=== PATIENT | female | born 1990 | race American Indian/Alaskan Native ===

== ENCOUNTER 2017-02-18 19:47 | Emergency (ER) | payer MEDICAID ==
[2017-02-18 21:51] LABS: Basophils % (Auto) 0.5 % (0.0-1.8); Eosinophils % (Auto) 0.9 % (0.0-4.3); Hemoglobin 13.9 gm/dl (10.1-14.3); Mean Corpuscular HGB Conc 32 % (30-34); Mean Corpuscular Hemoglobin 28 pg (28-32); Mean Corpuscular Volume 88 fl (79-97); Platelet Count 219 K/mm3 (140-440); Red Blood Count 4.91 M/mm3 (3.65-5.03); Red Cell Distribution Width 15.1 % (13.2-15.2); White Blood Count 6.5 K/mm3 (4.5-11.0)
[2017-02-18 22:01] LABS: INR 1.01 (0.87-1.13)
[2017-02-18 22:02] LABS: Partial Thromboplastin Time 33.9 Sec. (24.2-36.6)
[2017-02-18 22:33] LABS: Anion Gap 17 mmol/L; BUN/Creatinine Ratio 13; Blood Urea Nitrogen 9 mg/dL (7-17); Carbon Dioxide 28 mmol/L (22-30); Chloride 103.4 mmol/L (98-107); Glucose 88 mg/dL (65-100); Potassium 4.9 mmol/L (3.6-5.0); Sodium 143 mmol/L (137-145)
[2017-02-19 01:44] VITALS: BP 145/94
--- NOTE | 2017-02-19 02:07 | Emergency Department Report ---
ED Female HPI - General Chief complaint: Vaginal Bleeding Stated complaint: HIGH BLOOD PRESSURE,VAGINAL BLEEDING Time Seen by Provider: 02/19/17 01:40 Source: patient Mode of arrival: Ambulatory Limitations: No Limitations - History of Present Illness Initial comments: T6-year-old more per obese female presents to the emergency room irregular menses with no active bleeding during triage. She denies any abdominal pain or pelvic pain. She does report to me that her period has just started again while waiting to be evaluated by a provider. She reports that her period come on for 2 days and off for 3 days and then come back on. 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 She reports that she is followed by [facility]. Her last Coumadin check was last month. She does not know what the levels were. Patient also concern for elevated blood pressure. She reports she has a history of hypertension is on hydrochlorothiazide 25 mg daily. Her blood pressure during triage is 157/103 repeat of her blood pressure was 145/94 with a heart rate of 100% room air oxygen. Complaint: vaginal bleeding -: month(s) Severity: moderate Severity scale (0 -10): 0 Consistency: intermittent Worsens with: none Associated Symptoms: vaginal bleeding - Related Data Sexually active: No Home Medications Medication Instructions Recorded Confirmed Last Taken HCTZ 25 mg PO DAILY 02/18/17 02/18/17 Unknown Previous Rx's Medication Instructions Recorded Last Taken Type Warfarin Sodium 7.5 mg PO DAILY #30 02/19/17 Unknown Rx Allergies Allergy/AdvReac Type Severity Reaction Status Date / Time acetaminophen [From Vicodin] Allergy Unknown Verified 02/02/16 18:08 hydrocodone bitartrate Allergy Unknown Verified 02/02/16 18:08 [From Vicodin] Penicillins Allergy Shortness Verified 02/02/16 18:08 of Breath ED Review of Systems ROS: Stated complaint: HIGH BLOOD PRESSURE,VAGINAL BLEEDING Other details as noted in HPI Constitutional: denies: chills, fever Eyes: denies: eye pain, eye discharge, vision change ENT: denies: ear pain, throat pain Respiratory: denies: cough, shortness of breath, wheezing Cardiovascular: denies: chest pain, palpitations Endocrine: no symptoms reported Gastrointestinal: denies: abdominal pain, nausea, diarrhea Genitourinary: abnormal menses Musculoskeletal: denies: back pain, joint swelling, arthralgia Skin: denies: rash, lesions Neurological: denies: headache, weakness, paresthesias Hematological/Lymphatic: other (on Coumadin [place] 0.5 mg daily) ED Past Medical Hx - Past Medical History Hx Hypertension: Yes Hx Deep Vein Thrombosis: Yes Hx Pulmonary Embolism: Yes Hx Asthma: Yes Additional medical history: "Blood disorder", MORBID OBESITY, - Surgical History Additional Surgical History: - Social History Smoking Status: Never Smoker Substance Use Type: None - Medications Home Medications: Home Medications Medication Instructions Recorded Confirmed Last Taken Type HCTZ 25 mg PO DAILY 02/18/17 02/18/17 Unknown History Warfarin Sodium 7.5 mg PO DAILY #30 02/19/17 Unknown Rx ED Physical Exam - General Limitations: No Limitations - Head Head exam: Present: atraumatic - Eye Eye exam: Present: normal appearance - ENT ENT exam: Present: mucous membranes moist - Neck Neck exam: Present: normal inspection - Respiratory Respiratory exam: Present: normal lung sounds bilaterally. Absent: respiratory distress - Cardiovascular Cardiovascular Exam: Present: regular rate, normal rhythm. Absent: systolic murmur, diastolic murmur, rubs, gallop - GI/Abdominal GI/Abdominal exam: Present: soft, normal bowel sounds - External exam: Present: normal external exam, bleeding Speculum exam: Present: vaginal bleeding Bi-manual exam: Present: normal bi-manual exam - Extremities Exam Extremities exam: Present: normal inspection - Neurological Exam Neurological exam: Present: oriented X3 - Psychiatric Psychiatric exam: Present: normal affect, normal mood - Skin Skin exam: Present: warm, dry, intact, normal color. Absent: rash ED Course Vital Signs 02/18/17 02/19/17 21:14 01:43 Temperature 98 F Pulse Rate 75 84 Respiratory 18 18 Rate Blood Pressure 157/103 Blood Pressure 145/94 [Right] O2 Sat by Pulse 98 100 Oximetry ED Medical Decision Making - Lab Data Result diagrams: 02/18/17 21:28 02/18/17 21:28 - Medical Decision Making Patient has been evaluated by this provider in fast track. I discussed the patient that she will need to follow-up with a [employer]ATIONAL SALES provider and her primary care provider for treatment for dysfunctional uterine bleeding. Patient verbalized understanding. I did discuss the patient will refill her Coumadin at 7.5 mg and encouraged her to have her Coumadin level check she reports that she's been out of it for the last 2 days. Patient verbalized understanding Critical care attestation.: If time is entered above; I have spent that time in minutes in the direct care of this critically ill patient, excluding procedure time. ED Disposition Clinical Impression: Dysfunctional uterine bleeding, Anticoagulant disorder Disposition: TO HOME OR SELFCARE Is pt being admited?: No Does the pt Need Aspirin: No Condition: Stable Instructions: Dysfunctional Uterine Bleeding (ED), Warfarin (By mouth) Additional Instructions: Please take Coumadin as prescribed. Please follow with her NATIONAL SALES doctor as well as [facility]. Prescriptions: Warfarin Sodium 7.5 mg PO DAILY #30 Referrals: [facility] [Outside] - 3-5 Days SHEBA GREENWOOD DO [Staff Physician] - 3-5 Days Forms: Work/School Release Form(ED)
[2017-02-19 02:13] LABS: Bacteria,Urine 2+ /HPF (Negative); Bilirubin,Urine NEG (Negative); Blood,Urine LG (Negative); Ketones,Urine NEG (Negative); Leukocyte Esterase,Urine SM (Negative); Mucus,Urine 3+ /HPF; Nitrite,Urine NEG (Negative)
[2017-02-19 02:15] LABS: RBC,Urine > 182.0 /HPF (0.0-6.0)
== END 2017-02-19 02:42 | disposition home or self-care (01) ==
LOC: ED 19:47
DX: N93.8 Other specified abnormal uterine and vaginal bleeding (principal); D75.89 Other specified diseases of blood and blood-forming organs; I10 Essential (primary) hypertension; J45.909 Unspecified asthma, uncomplicated
CPT/HCPCS: 36415; 80048; 81001; 84703; 85025; 85610; 85730; 87210; 87591

== ENCOUNTER 2017-04-21 11:25 | Emergency (ER) | payer MEDICAID ==
[2017-04-21 13:27] LABS: Basophils # (Auto) 0.1 K/mm3 (0.0-0.1); Basophils % (Auto) 0.8 % (0.0-1.8); Eosinophils # (Auto) 0.1 K/mm3 (0.0-0.4); Eosinophils % (Auto) 0.9 % (0.0-4.3); Hematocrit 42.8 % (30.3-42.9); Hemoglobin 14.3 gm/dl (10.1-14.3); Lymphocytes # (Auto) 1.6 K/mm3 (1.2-5.4); Lymphocytes % (Auto) 21.5 % (13.4-35.0); Mean Corpuscular HGB Conc 33 % (30-34); Mean Corpuscular Hemoglobin 29 pg (28-32); Mean Corpuscular Volume 87 fl (79-97); Monocytes # (Auto) 0.5 K/mm3 (0.0-0.8); Monocytes % (Auto) 6.1 % (0.0-7.3); Platelet Count 170 K/mm3 (140-440); Red Blood Count 4.92 M/mm3 (3.65-5.03); Red Cell Distribution Width 14.5 % (13.2-15.2)
[2017-04-21 13:37] LABS: INR 0.97 (0.87-1.13)
[2017-04-21 13:38] LABS: Partial Thromboplastin Time 31.8 Sec. (24.2-36.6)
[2017-04-21 13:45] LABS: Alanine Aminotransferase 57 units/L (7-56); Albumin 4.1 g/dL (3.9-5); BUN/Creatinine Ratio 11; Blood Urea Nitrogen 8 mg/dL (7-17); Calcium 9.1 mg/dL (8.4-10.2); Hemolysis Index 16
--- NOTE | 2017-04-21 15:46 | Ultrasound Report ---
FINAL REPORT PROCEDURE: US PELVIC COMPLETE TECHNIQUE: Real-time transabdominal sonography in multiple planes of pelvis was performed with image documentation. This examination was performed without Doppler. Vascular abnormalities, including ovarian torsion, will not be detectable without Doppler evaluation. CPT 68023 HISTORY: ABD PAIN/VAG BLEED COMPARISON: Prior pelvic ultrasound 02/03/2016 FINDINGS: The uterus measures 12.2 x 5.6 x 6.5 centimeter. The endometrial stripe measures 9.2 millimeters although suboptimally visualized with only transabdominal scanning.. No fluid is seen in the endometrial canal or in the cul-de-sac. No uterine masses are identified. No abnormal adnexal masses are identified. The ovaries are not visualized. IMPRESSION: Uterus is unremarkable. The ovaries were not visualized. No focal abnormalities are identified.
[2017-04-21 21:55] VITALS: BP 156/106
[2017-04-21] MEDS ORDERED: ULTRAM PO ONE (21:57)
[2017-04-21] MEDS ORDERED: MOTRIN PO ONE (21:57)
--- NOTE | 2017-04-21 22:34 | Emergency Department Report ---
ED Female HPI - General Chief complaint: Abdominal Pain Stated complaint: ABD PAIN, VAG BLEEDING Time Seen by Provider: 04/21/17 20:54 Source: patient Mode of arrival: Ambulatory Limitations: No Limitations - History of Present Illness Initial comments: 26-year-old female with a past medical history asthma, PE, DVT, hypertension, morbid obesity, and a "blood clotting disorder" presents to the Hospital complains of heavy vaginal bleeding since last night. Patient's LMP was 2016. She did not have a menstrual cycle in February. She has irregular menses on occasion. She is supposed to be on Lovenox for her underlying clotting disorder with history of PE/DVT but has not had the medication in 2 weeks. Plans to refill it after apr 24. Patient complains of 8/10 intermittent sharp suprapubic abdominal pain associated with the vaginal bleeding. Worse with palpation. No specific alleviating factors reported. She denies chest pain, shortness of breath, calf tenderness, or edema. Patient is not currently on control since it is contraindicated based on her blood condition. Patient has an appointment with STRAIGHT TOOTH GEAR GENERATOR OPERATOR associated with [facility] on April 25. No complaints of syncope, palpitation, lightheadedness, dyspnea exertion, or fatigue. Patient did not take her blood pressure medication today because of her pain. Contrary to allergy list patient denies allergy to Vicodin , hydrocodone, or Tylenol. Patient states she also has a cold that she thinks she got from her daughter. Complains of sore throat with swallowing but no fever. - Related Data Home Medications Medication Instructions Recorded Confirmed Last Taken HCTZ 25 mg PO DAILY 02/18/17 02/18/17 Unknown Previous Rx's Medication Instructions Recorded Last Taken Type Warfarin Sodium 7.5 mg PO DAILY #30 02/19/17 Unknown Rx Azithromycin [Zithromax Z-BERENICE] 1 dose PO DAILY 5 Days tab 04/21/17 Unknown Rx Ferrous Sulfate [Feosol 325 MG tab] 325 mg PO QDAY #30 tablet 04/21/17 Unknown Rx Ibuprofen [Motrin] 800 mg PO Q8HR PRN #30 tablet 04/21/17 Unknown Rx traMADol [Ultram 50 MG tab] 50 mg PO Q6HR PRN #20 tablet 04/21/17 Unknown Rx Allergies Allergy/AdvReac Type Severity Reaction Status Date / Time Penicillins Allergy Shortness Verified 02/02/16 18:08 of Breath ED Review of Systems ROS: Stated complaint: ABD PAIN, VAG BLEEDING Other details as noted in HPI Comment: All other systems reviewed and negative Other: Constitutional: No fevers chills Eyes: No eye pain visual changes ENT: No ear pain or throat pain Neck: Denies pain Respiratory: Denies cough wheezing shortness of breath Cardiovascular: Denies chest pain, palpitations, syncope GI: As per HPI : Denies dysuria Musculoskeletal: Denies back pain Skin: Denies rash, lesions, erythema Neurologic: Denies headache, numbness, weakness Psychiatric: Denies suicidal ideation, hallucinations ED Past Medical Hx - Past Medical History Hx Hypertension: Yes Hx Deep Vein Thrombosis: Yes Hx Pulmonary Embolism: Yes Hx Asthma: Yes Additional medical history: "Blood disorder", MORBID OBESITY, - Surgical History Additional Surgical History: - Social History Smoking Status: Never Smoker Substance Use Type: None - Medications Home Medications: Home Medications Medication Instructions Recorded Confirmed Last Taken Type HCTZ 25 mg PO DAILY 02/18/17 02/18/17 Unknown History Warfarin Sodium 7.5 mg PO DAILY #30 02/19/17 Unknown Rx Azithromycin [Zithromax Z-BERENICE] 1 dose PO DAILY 5 Days tab 04/21/17 Unknown Rx Ferrous Sulfate [Feosol 325 MG tab] 325 mg PO QDAY #30 tablet 04/21/17 Unknown Rx Ibuprofen [Motrin] 800 mg PO Q8HR PRN #30 tablet 04/21/17 Unknown Rx traMADol [Ultram 50 MG tab] 50 mg PO Q6HR PRN #20 tablet 04/21/17 Unknown Rx ED Physical Exam - General Limitations: No Limitations - Other Other exam information: General: No limitations, patient is alert in no acute distress Head exam: Atraumatic, normocephalic Eyes exam: Normal appearance, pink conjunctiva ENT: Moist mucous membrane, no pharyngeal exudate Neck exam: Normal inspection, full range of motion, no meningismus nontender Respiratory exam: Clear to auscultation bilateral, no wheezes, rales, crackles Cardiovascular: Normal rate and rhythm, normal heart sounds Abdomen: Soft, nondistended, mild suprapubic tenderness, with normal bowel sounds, no rebound, or guarding Extremity: Full range of motion normal inspection no deformity Back: Normal Inspection, full range of motion, no tenderness Neurologic: Alert, oriented x3, cranial nerves intact, no motor or sensory deficit Psychiatric: normal affect, normal mood Skin: Warm, dry, intact ED Course Vital Signs 04/21/17 04/21/17 04/21/17 12:30 21:17 21:44 Temperature 98.1 F 99.1 F 98.9 F Pulse Rate 75 85 89 Respiratory 20 16 18 Rate Blood Pressure 196/136 Blood Pressure 152/106 156/106 [Right] O2 Sat by Pulse 97 100 99 Oximetry 04/21/17 21:56 Temperature Pulse Rate Respiratory 18 Rate Blood Pressure Blood Pressure [Right] O2 Sat by Pulse 99 Oximetry - Reevaluation(s) Reevaluation #1: 04/21/17 22:35 Motrin and tramadol provided. At this time patient states bleeding initially slow down but now is increasing. STRAIGHT TOOTH GEAR GENERATOR OPERATOR paged - Consultations Consultation #1: 04/21/17 22:[address] Langley STRAIGHT TOOTH GEAR GENERATOR OPERATOR on-call for [facility] since patient has a scheduled follow-up on April 25. He requested I discuss case with on-call physician since patient has yet to establish patient-doctor relationship 04/21/17 22:[address] Turner on-call STRAIGHT TOOTH GEAR GENERATOR OPERATOR. Agrees with outpatient follow- up and empiric iron tablets. Patient does not meet inpatient admission criteria or criteria for emergent intervention at this time ED Medical Decision Making - Lab Data Result diagrams: 04/21/17 12:59 04/21/17 12:59 Lab Results 04/21/17 04/21/17 04/21/17 Range/Units 12:59 12:59 12:59 WBC 7.6 (4.5-11.0) K/mm3 RBC 4.92 (3.65-5.03) M/mm3 Hgb 14.3 (10.1-14.3) gm/dl Hct 42.8 (30.3-42.9) % MCV 87 (79-97) fl MCH 29 (28-32) pg MCHC 33 (30-34) % RDW 14.5 (13.2-15.2) % Plt Count 170 (140-440) K/mm3 Lymph % (Auto) 21.5 (13.4-35.0) % [place] % (Auto) 6.1 (0.0-7.3) % Eos % (Auto) 0.9 (0.0-4.3) % Baso % (Auto) 0.8 (0.0-1.8) % Lymph # 1.6 (1.2-5.4) K/mm3 [place] # 0.5 (0.0-0.8) K/mm3 Eos # 0.1 (0.0-0.4) K/mm3 Baso # 0.1 (0.0-0.1) K/mm3 Seg Neutrophils % 70.7 H (40.0-70.0) % Seg Neutrophils # 5.4 (1.8-7.7) K/mm3 PT 13.4 (12.2-14.9) Sec. INR 0.97 (0.87-1.13) APTT 31.8 (24.2-36.6) Sec. Sodium 139 (137-145) mmol/L Potassium 4.6 (3.6-5.0) mmol/L Chloride 101.2 (98-107) mmol/L Carbon Dioxide 25 (22-30) mmol/L Anion Gap 17 mmol/L BUN 8 (7-17) mg/dL Creatinine 0.7 (0.7-1.2) mg/dL Estimated GFR > 60 ml/min BUN/Creatinine Ratio 11 % Glucose 89 (65-100) mg/dL Calcium 9.1 (8.4-10.2) mg/dL Total Bilirubin 0.40 (0.1-1.2) mg/dL AST 43 H (5-40) units/L ALT 57 H (7-56) units/L Alkaline Phosphatase 85 (35-129) units/L Total Protein 7.9 (6.3-8.2) g/dL Albumin 4.1 (3.9-5) g/dL Albumin/Globulin Ratio 1.1 % HCG, Qual (Negative) 04/21/ Range/Units 12:59 WBC (4.5-11.0) K/mm3 RBC (3.65-5.03) M/mm3 Hgb (10.1-14.3) gm/dl Hct (30.3-42.9) % MCV (79-97) fl MCH (28-32) pg MCHC (30-34) % RDW (13.2-15.2) % Plt Count (140-440) K/mm3 Lymph % (Auto) (13.4-35.0) % [place] % (Auto) (0.0-7.3) % Eos % (Auto) (0.0-4.3) % Baso % (Auto) (0.0-1.8) % Lymph # (1.2-5.4) K/mm3 [place] # (0.0-0.8) K/mm3 Eos # (0.0-0.4) K/mm3 Baso # (0.0-0.1) K/mm3 Seg Neutrophils % (40.0-70.0) % Seg Neutrophils # (1.8-7.7) K/mm3 PT (12.2-14.9) Sec. INR (0.87-1.13) APTT (24.2-36.6) Sec. Sodium (137-145) mmol/L Potassium (3.6-5.0) mmol/L Chloride (98-107) mmol/L Carbon Dioxide (22-30) mmol/L Anion Gap mmol/L BUN (7-17) mg/dL Creatinine (0.7-1.2) mg/dL Estimated GFR ml/min BUN/Creatinine Ratio % Glucose (65-100) mg/dL Calcium (8.4-10.2) mg/dL Total Bilirubin (0.1-1.2) mg/dL AST (5-40) units/L ALT (7-56) units/L Alkaline Phosphatase (35-129) units/L Total Protein (6.3-8.2) g/dL Albumin (3.9-5) g/dL Albumin/Globulin Ratio % HCG, Qual Negative (Negative) strep positive - Radiology Data Radiology results: report reviewed Pelvic ultrasound: Uterus is unremarkable. Ovaries not visualized. No focal abnormalities. - Medical Decision Making No signs of anemia cardiac instability. Ultrasound unremarkable. No signs of . Patient is stable for follow-up regarding vaginal bleeding. Iron tablets will be prescribed. Patient cannot be placed on Provera given clotting disorder Patient has chronic hypertension and did not take her medication today. BP has reduced compared to initial triage vital sign. Patient received first dose of azithromycin for strep pharyngitis. Additional prescriptions will be provided Positive strep throat. Initial azithromycin dose provided here. Patient is allergic to penicillin Medications for pain will be provided. - Differential Diagnosis DB, anemia, , fibroids, cancer, menometrorrhagia Critical Care Time: No Critical care attestation.: If time is entered above; I have spent that time in minutes in the direct care of this critically ill patient, excluding procedure time. ED Disposition Clinical Impression: Menometrorrhagia, Asymptomatic hypertension, Strep pharyngitis Disposition: TO HOME OR SELFCARE Is pt being admited?: No Does the pt Need Aspirin: No Condition: Stable Instructions: Menorrhagia (ED), Chronic Hypertension (ED), Strep Throat (ED) Additional Instructions: Take the medications is prescribed. Return if symptoms worsen indicated by her discharge instructions. Follow-up with her STRAIGHT TOOTH GEAR GENERATOR OPERATOR doctor as scheduled April 25. Once you start taking your Lovenox or Coumadin you must discontinue the Motrin. Prescriptions: Azithromycin [Zithromax Z-BERENICE] 1 dose PO DAILY 5 Days tab Ferrous Sulfate [Feosol 325 MG tab] 325 mg PO QDAY #30 tablet Ibuprofen [Motrin] 800 mg PO Q8HR PRN #30 tablet PRN Reason: Pain traMADol [Ultram 50 MG tab] 50 mg PO Q6HR PRN #20 tablet PRN Reason: Pain Referrals: [facility] STRAIGHT TOOTH GEAR GENERATOR OPERATOR, [Other] - 3-5 Days PRIMARY CARE,MD [Primary Care Provider] - 3-5 Days Forms: Work/School Release Form(ED) Time of Disposition: 23:23
[2017-04-21] MEDS ORDERED: ZITHROMAX PO ONE (23:14)
--- NOTE | 2017-04-22 09:35 | Ultrasound Report ---
TRANSVAGINAL PELVIC ULTRASOUND: 04/21/17 11:25:00 CLINICAL: Pelvic pain and vaginal bleeding. FINDINGS: Transabdominal and transvaginal pelvic ultrasound demonstrated a mildly enlarged uterus measuring approximately 11 cm in length by 6.2 cm AP dimension by 6.5 cm transverse measured. No uterine fibroid or mass. The endometrium is mildly thickened and measures 16 mm AP thickness. The right ovary contains a 2.6 cm anechoic cyst and it measures approximately 3.6 x 2.6 cm. The left ovary measures approximately 2.7 x 2.2 x 3.5 cm and contains a 1.9 cm anechoic cyst. No adnexal mass. Mild free fluid in the cul-de-sac. IMPRESSION: A mildly enlarged uterus with nonspecific endometrial thickening. No uterine fibroids. Bilateral ovarian cysts with the largest in the right ovary measuring 2.6 cm.
== END 2017-04-22 00:25 | disposition home or self-care (01) ==
LOC: ED 11:25
DX: N92.1 Excessive and frequent menstruation with irregular cycle (principal); I10 Essential (primary) hypertension; J02.0 Streptococcal pharyngitis; I82.409 Acute embolism and thrombosis of unspecified deep veins of unspecified lower extremity; J45.909 Unspecified asthma, uncomplicated; E66.01 Morbid (severe) obesity due to excess calories; Z98.890 Other specified postprocedural states; Z88.0 Allergy status to penicillin
CPT/HCPCS: 36415; 76830; 76856; 80053; 84703; 85025; 85610; 85730; 87430

== ENCOUNTER 2017-08-01 13:40 | Emergency (ER) | payer SELFPAY ==
--- NOTE | 2017-08-01 14:54 | Emergency Department Report ---
Blank Doc - Documentation Documentation: Patient is a 27-year-old asthmatic female presenting with low abdominal pressure type discomfort for the past 2 weeks. Patient states she has not had a period for the last 4 months but states stated in prior pregnancies her Prevacid test was not positive therefore she decided not to take a test [id number]. Patient was assuming that she may be . Patient states her only other symptoms mild nausea. She denies any actual dysuria but does have urinary frequency. Patient denies any fevers chills and no vaginal bleeding. Urinalysis and test performed. Rule out UTI with the patient is that ultrasound would be necessary.
[2017-08-01 15:20] LABS: HCG Qualitative,Urine Negative (Negative)
[2017-08-01 15:26] LABS: Bacteria,Urine 2+ /HPF (Negative); Bilirubin,Urine NEG (Negative); Blood,Urine NEG (Negative); Color,Urine Yellow (Yellow); Mucus,Urine FEW /HPF; Protein,Urine <15 mg/dL mg/dL (Negative); Urobilinogen,Urine < 2.0 mg/dL (<2.0)
--- NOTE | 2017-08-01 16:19 | Emergency Department Report ---
HPI - General Chief Complaint: Abdominal Pain Time Seen by Provider: 08/01/17 14:33 - HPI HPI: Patient is a 27-year-old asthmatic female presenting with low pelvic pressure type discomfort for the past 2 weeks. She describes discomfort as pressure- type aching type pain Patient states she has not had a period for the last 4 months patient states that last period was in February 2017. Patient states that she has just been placed on heparin around then and had some vaginal bleeding for a while.patient states she was worked up by COMPUTING TUTOR and nothing was found. Patient states bleeding stops assisted than she has not had a period. Patient was assuming that she may be . Patient states her only other symptoms mild nausea. She denies any actual dysuria but does have urinary frequency. She denies fevers/chills/nausea or vomiting abdominal pain ED Past Medical Hx - Past Medical History Previous Medical History?: Yes Hx Hypertension: Yes Hx Deep Vein Thrombosis: Yes Hx Pulmonary Embolism: Yes Hx Asthma: Yes Additional medical history: "Blood disorder", MORBID OBESITY, - Surgical History Past Surgical History?: Yes Additional Surgical History: - Social History Smoking Status: Never Smoker Substance Use Type: Prescribed - Medications Home Medications: Home Medications Medication Instructions Recorded Confirmed Last Taken Type HCTZ 25 mg PO DAILY 02/18/17 02/18/17 Unknown History Warfarin Sodium 7.5 mg PO DAILY #30 02/19/17 Unknown Rx Azithromycin [Zithromax Z-BERENICE] 1 dose PO DAILY 5 Days tab 04/21/17 Unknown Rx Ferrous Sulfate [Feosol 325 MG tab] 325 mg PO QDAY #30 tablet 04/21/17 Unknown Rx traMADol [Ultram 50 MG tab] 50 mg PO Q6HR PRN #20 tablet 04/21/17 Unknown Rx Ibuprofen [Motrin 800 MG tab] 800 mg PO Q8HR PRN #30 tablet 08/01/17 Unknown Rx Sulfamethoxazole/Trimethoprim 1 each PO BID #14 tablet 08/01/17 Unknown Rx [Bactrim DS TAB] ED Review of Systems ROS: Stated complaint: ABDOMINAL PAIN Other details as noted in HPI Constitutional: denies: chills, fever Eyes: denies: eye pain, eye discharge, vision change ENT: denies: ear pain, throat pain Respiratory: denies: cough, shortness of breath, wheezing Cardiovascular: denies: chest pain, palpitations Endocrine: no symptoms reported Gastrointestinal: denies: abdominal pain, nausea, diarrhea Genitourinary: denies: urgency, dysuria, discharge Musculoskeletal: denies: back pain, joint swelling, arthralgia Skin: denies: rash, lesions Neurological: denies: headache, weakness, paresthesias Psychiatric: denies: anxiety, depression Hematological/Lymphatic: denies: easy bleeding, easy bruising Physical Exam - Physical Exam Vital Signs: Vital Signs 08/01/17 14:03 Temperature 96.9 F L Pulse Rate 77 Respiratory 18 Rate Blood Pressure 162/103 O2 Sat by Pulse 100 Oximetry Physical Exam: GENERAL: Alert and oriented x3, no apparent distress, Normal Gait, atraumatic. HEAD: Head is normocephalic and a-traumatic. NECK: Supple. No carotid bruits. No lymphadenopathy or thyromegaly. No C- spine tenderness LUNGS: Symetrical with respiration, No wheezing, no rales or crackles, CTAB. HEART: S1, S2 present, regular rate and rhythm without murmur, no rubs, no gallops. Non tender to palpation ABDOMEN: No organomegaly was noted,Positive bowel sounds, soft, and non- distended. . Nontender to palpation on all Quadrants, NO CVA tenderness. BACK: Full range of motion, no spinal tenderness, nontender to palpation. NEUROLOGIC: The patient is cooperative with no focal neurologic deficits. SKIN: Warm and dry, No lesions, No ulceration or induration present. ED Course Vital Signs 08/01/17 14:03 Temperature 96.9 F L Pulse Rate 77 Respiratory 18 Rate Blood Pressure 162/103 O2 Sat by Pulse 100 Oximetry ED Medical Decision Making - Medical Decision Making 27-year-old female presents with a urinary tract infection ED course, CBC urinalysis test completed Urinalysis positive for mild UTI. CT is negative Discussed this findings with the patient. Discussed with patient follow-up with her MANAGER OF LEARNING as usual. Discussed any worsening symptoms return to ED. Vital signs are normalized patient is in no acute distress. She is to go home on antibiotics and instructions. Critical care attestation.: If time is entered above; I have spent that time in minutes in the direct care of this critically ill patient, excluding procedure time. ED Disposition Clinical Impression: Flank pain UTI (urinary tract infection) Qualifiers: Urinary tract infection type: acute cystitis Hematuria presence: with hematuria Qualified Code(s): N30.01 - Acute cystitis with hematuria Disposition: TO HOME OR SELFCARE Is pt being admited?: No Does the pt Need Aspirin: No Condition: Stable Instructions: Urinary Tract Infection in Women (ED), Dysuria (ED) Additional Instructions: Make sure to follow up with the primary care physician as discussed. Take all your medications as you've been prescribed. If you have any worsening symptoms or develop new symptoms please return to ED immediately. Prescriptions: Ibuprofen [Motrin 800 MG tab] 800 mg PO Q8HR PRN #30 tablet PRN Reason: Pain Sulfamethoxazole/Trimethoprim [Bactrim DS TAB] 1 each PO BID #14 tablet Referrals: [facility] [Outside] - 3-5 Days [facility] [Outside] - 3-5 Days [facility] [Outside] - 3-5 Days PRIMARY CARE, [Primary Care Provider] - 3-5 Days KWASI VIEIRA MD [Referring] - 3-5 Days Forms: Accompanied Note, Work/School Release Form(ED) Time of Disposition: 16:20
[2017-08-01 16:47] VITALS: BP 124/78
== END 2017-08-01 16:46 | disposition home or self-care (01) ==
LOC: ED 13:40
DX: N39.0 Urinary tract infection, site not specified (principal); I10 Essential (primary) hypertension
CPT/HCPCS: 81001; 81025; 99283

== ENCOUNTER 2017-08-31 01:49 | Emergency (ER) | payer SELFPAY ==
[2017-08-31 02:12] VITALS: BP 123/83
[2017-08-31 03:58] LABS: HCG Qualitative,Urine Negative (Negative)
--- NOTE | 2017-08-31 04:35 | Cat Scan Report ---
FINAL REPORT EXAM: CT HEAD/BRAIN WO CON HISTORY: ACUTE JOHN W/PHOTOSENSITIVITY TECHNIQUE: Routine axial imaging was obtained of the brain without IV contrast FINDINGS: The ventricular system is appropriate in size and is symmetric. There is no evidence of acute stroke or hemorrhage. The basal cisterns appear normal. The visualized sinuses are clear. The mastoid air cells are well pneumatized. IMPRESSION: Within normal limits
[2017-08-31] MEDS ORDERED: REGLAN IV ONE (05:51)
[2017-08-31] MEDS ORDERED: BENADRYL IV ONE (05:51)
--- NOTE | 2017-08-31 06:00 | Emergency Department Report ---
ED Headache HPI - General Chief Complaint: Extremity Injury, Upper Stated Complaint: H/A Time Seen by Provider: 08/31/17 05:49 Source: patient Exam Limitations: no limitations - History of Present Illness Initial Comments: This is a 27-year-old -[place] female who presents with a headache for 7 days. Patient reports symptoms are increasing to where she started to have sensitivity to light just aggravating headache. She is taking ibuprofen and Tylenol sinus medication which has not improved any of the symptoms. She currently takes labetalol and hydrochlorothiazide for hypertension. Patient reports she wakes up with a headache and lie down with headache when she noted bad at night. Denies nausea or vomiting, chest pain, fever, and shortness of breath. Timing/Duration: 1 week Quality: severe, constant, pressure, throbbing Head Injury Location: frontal Recent Head Trauma: no recent headache/trauma, occasional headaches Modifying Factors: improves with: exposure to light (aggravate symptoms) Associated Symptoms: denies symptoms Allergies/Adverse Reactions: Allergies Penicillins Allergy (Verified 02/02/16 18:08) Shortness of Breath Home Medications: Ambulatory Orders HCTZ 25 mg PO DAILY 02/18/17 Warfarin Sodium 7.5 mg PO DAILY #30 02/19/17 RX: Azithromycin [Zithromax Z-BERENICE] 1 dose PO DAILY 5 Days tab 04/21/17 RX: Ferrous Sulfate [Feosol 325 MG tab] 325 mg PO QDAY #30 tablet 04/21/17 RX: traMADol [Ultram 50 MG tab] 50 mg PO Q6HR PRN #20 tablet 04/21/17 RX: Ibuprofen [Motrin 800 MG tab] 800 mg PO Q8HR PRN #30 tablet 08/01/17 Sulfamethoxazole/Trimethoprim [Bactrim DS TAB] 1 each PO BID #14 tablet RX: Naproxen Sodium [Anaprox Ds] 550 mg PO BID PRN #20 tablet 08/31/17 ED Review of Systems ROS: Stated complaint: H/A Other details as noted in HPI Constitutional: denies: chills, fever Respiratory: denies: cough, shortness of breath, wheezing Cardiovascular: denies: chest pain, palpitations, syncope Gastrointestinal: denies: abdominal pain, nausea, vomiting, diarrhea Neurological: headache. denies: weakness, paresthesias Psychiatric: denies: anxiety, depression ED Past Medical Hx - Past Medical History Previous Medical History?: Yes Hx Hypertension: Yes Hx Deep Vein Thrombosis: Yes Hx Pulmonary Embolism: Yes Hx Asthma: Yes Additional medical history: "Blood disorder", MORBID OBESITY - Surgical History Past Surgical History?: Yes Additional Surgical History: - Social History Smoking Status: Never Smoker - Medications Home Medications: Home Medications Medication Instructions Recorded Confirmed Last Taken Type HCTZ 25 mg PO DAILY 02/18/17 02/18/17 Unknown History Warfarin Sodium 7.5 mg PO DAILY #30 02/19/17 Unknown Rx RX: Azithromycin [Zithromax Z-BERENICE] 1 dose PO DAILY 5 Days tab 04/21/17 Unknown Rx RX: Ferrous Sulfate [Feosol 325 MG 325 mg PO QDAY #30 tablet 04/21/17 Unknown Rx tab] RX: traMADol [Ultram 50 MG tab] 50 mg PO Q6HR PRN #20 tablet 04/21/17 Unknown Rx RX: Ibuprofen [Motrin 800 MG tab] 800 mg PO Q8HR PRN #30 tablet 08/01/17 Unknown Rx Sulfamethoxazole/Trimethoprim 1 each PO BID #14 tablet 08/01/17 Unknown Rx [Bactrim DS TAB] RX: Naproxen Sodium [Anaprox Ds] 550 mg PO BID PRN #20 tablet 08/31/17 Unknown Rx ED Physical Exam - General Limitations: No Limitations General appearance: alert, in no apparent distress, obese - ENT ENT exam: Present: mucous membranes moist, TM's normal bilaterally, normal external ear exam - Respiratory Respiratory exam: Present: normal lung sounds bilaterally. Absent: respiratory distress, wheezes, rales, stridor, accessory muscle use - Cardiovascular Cardiovascular Exam: Present: regular rate, normal rhythm, normal heart sounds. Absent: systolic murmur, diastolic murmur, rubs, gallop - GI/Abdominal GI/Abdominal exam: Present: soft, normal bowel sounds. Absent: distended, tenderness, guarding, rebound, rigid, organomegaly, mass - Neurological Exam Neurological exam: Present: alert, oriented X3, normal gait - Psychiatric Psychiatric exam: Present: normal affect, normal mood - Skin Skin exam: Present: warm, dry, intact, normal color. Absent: rash ED Course Vital Signs 08/31/17 02:06 Temperature 98.4 F Pulse Rate 84 Respiratory 18 Rate Blood Pressure 123/83 O2 Sat by Pulse 96 Oximetry ED Medical Decision Making - Radiology Data Radiology results: report reviewed EXAM: CT HEAD/BRAIN WO CON HISTORY: ACUTE JOHN W/PHOTOSENSITIVITY TECHNIQUE: Routine axial imaging was obtained of the brain without IV contrast FINDINGS: The ventricular system is appropriate in size and is symmetric. There is no evidence of acute stroke or hemorrhage. The basal cisterns appear normal. The visualized sinuses are clear. The mastoid air cells are well pneumatized. IMPRESSION: Within normal limits - Medical Decision Making This is a 27 y.o. female that presents with headache for 1 week. History of HTN , Asthma, DVT, and obesity. Patient is stable and was examined by me. Signs of distress noted. Given benadryl 12.5 mg IV and Reglan 10 mg IV once in ER. CT of head obtained and dictated by radiologist. Patient notified of normal results. Patient reports headache resolved 30 minutes after treatment. Start naproxen and follow-up with PCP. No further questions noted by the patient. Discharged home in stable condition. Follow up with PCP in 24-72 hours. Critical care attestation.: If time is entered above; I have spent that time in minutes in the direct care of this critically ill patient, excluding procedure time. ED Disposition Clinical Impression: Migraine Qualifiers: Migraine type: without aura Status migrainosus presence: without status migrainosus Intractability: not intractable Qualified Code(s): G43.009 - Migraine without aura, not intractable, without status migrainosus Disposition: DC- TO HOME OR SELFCARE Is pt being admited?: No Does the pt Need Aspirin: No Condition: Stable Instructions: Migraine Headache (ED) Additional Instructions: Take medication at start of headache. Minimize caffeine intake. Eat at scheduled times or 3 meals a day with snacks. Follow up with primary care provider in 24-72 hours. Prescriptions: RX: Naproxen Sodium [Anaprox Ds] 550 mg PO BID PRN #20 tablet PRN Reason: Pain Referrals: EFREM VIEIRA MD [Primary Care Provider] - 3-5 Days [facility] [Outside] - 3-5 Days [facility] [Outside] - 3-5 Days Time of Disposition: 06:09 Print Language: CYMRO
== END 2017-08-31 06:37 | disposition home or self-care (01) ==
LOC: ED 01:49
DX: G43.909 Migraine, unspecified, not intractable, without status migrainosus (principal); I10 Essential (primary) hypertension; Z79.01 Long term (current) use of anticoagulants; Z88.0 Allergy status to penicillin
CPT/HCPCS: 70450; 81025; 96374; 96375; 99284; J1200; J2765

== ENCOUNTER 2017-09-25 07:28 | Emergency (ER) | payer SELFPAY ==
[2017-09-25 07:51] VITALS: BP 168/99
[2017-09-25 08:33] LABS: Bacteria,Urine 1+ /HPF (Negative); Bilirubin,Urine NEG (Negative); Blood,Urine NEG (Negative); Color,Urine Yellow (Yellow); Mucus,Urine FEW /HPF; Protein,Urine <15 mg/dL mg/dL (Negative); Urobilinogen,Urine < 2.0 mg/dL (<2.0)
[2017-09-25 08:40] LABS: HCG Qualitative,Urine Negative (Negative)
--- NOTE | 2017-09-25 09:28 | Emergency Department Report ---
ED ENT HPI - General Chief complaint: Earache Stated complaint: RIGHT EAR PAIN Time Seen by Provider: 09/25/17 09:22 Source: patient Mode of arrival: Ambulatory Limitations: No Limitations - History of Present Illness Initial comments: This is a 27-year-old female nontoxic, well nourished in appearance, no acute signs of distress presents to the ED with c/o of right earache x2 days. Patient describes pain as aching. Patient denies any decreased hearing or ear canal discharge. Patient denies any mastoid or tragus tenderness. Patient denies any fever, chills, nausea, vomiting, chest pain, shortness of breath, headache or stiff neck. Patient stated allergies to PCN. PMH includes asthma, DVT and hypertension. MD complaint: ear pain -: days(s) (2) Location: R ear Severity: mild Severity scale (0 -10): 8 Quality: aching Consistency: constant Improves with: none Worsens with: none Associated Symptoms: denies: fever, cough, gum swelling, toothache, pain with swallowing, sore throat, tinnitus, hearing loss, discharge from ear, rhinorrhea - Related Data Home Medications Medication Instructions Recorded Confirmed Last Taken HCTZ 25 mg PO DAILY 02/18/17 02/18/17 Unknown Previous Rx's Medication Instructions Recorded Last Taken Type Warfarin Sodium 7.5 mg PO DAILY #30 02/19/17 Unknown Rx Azithromycin [Zithromax Z-BERENICE] 1 dose PO DAILY 5 Days tab 04/21/17 Unknown Rx Ferrous Sulfate [Feosol 325 MG tab] 325 mg PO QDAY #30 tablet 04/21/17 Unknown Rx traMADol [Ultram 50 MG tab] 50 mg PO Q6HR PRN #20 tablet 04/21/17 Unknown Rx Ibuprofen [Motrin 800 MG tab] 800 mg PO Q8HR PRN #30 tablet 08/01/17 Unknown Rx Sulfamethoxazole/Trimethoprim 1 each PO BID #14 tablet 08/01/17 Unknown Rx [Bactrim DS TAB] Naproxen Sodium [Anaprox Ds] 550 mg PO BID PRN #20 tablet 08/31/17 Unknown Rx Azithromycin [Zithromax Z-BERENICE] 250 mg PO DAILY #6 tablet 09/25/17 Unknown Rx Allergies Allergy/AdvReac Type Severity Reaction Status Date / Time Penicillins Allergy Shortness Verified 02/02/16 18:08 of Breath ED Dental HPI - General Chief complaint: Earache Stated complaint: RIGHT EAR PAIN Time Seen by Provider: 09/25/17 09:22 Source: patient Mode of arrival: Ambulatory Limitations: No Limitations - Related Data Home Medications Medication Instructions Recorded Confirmed Last Taken HCTZ 25 mg PO DAILY 02/18/17 02/18/17 Unknown Previous Rx's Medication Instructions Recorded Last Taken Type Warfarin Sodium 7.5 mg PO DAILY #30 02/19/17 Unknown Rx Azithromycin [Zithromax Z-BERENICE] 1 dose PO DAILY 5 Days tab 04/21/17 Unknown Rx Ferrous Sulfate [Feosol 325 MG tab] 325 mg PO QDAY #30 tablet 04/21/17 Unknown Rx traMADol [Ultram 50 MG tab] 50 mg PO Q6HR PRN #20 tablet 04/21/17 Unknown Rx Ibuprofen [Motrin 800 MG tab] 800 mg PO Q8HR PRN #30 tablet 08/01/17 Unknown Rx Sulfamethoxazole/Trimethoprim 1 each PO BID #14 tablet 08/01/17 Unknown Rx [Bactrim DS TAB] Naproxen Sodium [Anaprox Ds] 550 mg PO BID PRN #20 tablet 08/31/17 Unknown Rx Azithromycin [Zithromax Z-BERENICE] 250 mg PO DAILY #6 tablet 09/25/17 Unknown Rx Allergies Allergy/AdvReac Type Severity Reaction Status Date / Time Penicillins Allergy Shortness Verified 02/02/16 18:08 of [facility] ED Review of Systems ROS: Stated complaint: RIGHT EAR PAIN Other details as noted in HPI Constitutional: denies: chills, fever Eyes: denies: eye pain, eye discharge, vision change ENT: ear pain. denies: throat pain Respiratory: denies: cough, shortness of breath, wheezing Cardiovascular: denies: chest pain, palpitations Endocrine: no symptoms reported Gastrointestinal: denies: abdominal pain, nausea, diarrhea Genitourinary: denies: urgency, dysuria, discharge Musculoskeletal: denies: back pain, joint swelling, arthralgia Skin: denies: rash, lesions Neurological: denies: headache, weakness, paresthesias Psychiatric: denies: anxiety, depression Hematological/Lymphatic: denies: easy bleeding, easy bruising ED Past Medical Hx - Past Medical History Previous Medical History?: Yes Hx Hypertension: Yes Hx Deep Vein Thrombosis: Yes Hx Pulmonary Embolism: Yes Hx Asthma: Yes Additional medical history: "Blood disorder", MORBID OBESITY - Surgical History Past Surgical History?: Yes Additional Surgical History: x 1, Miscarriage x 1 - Social History Smoking Status: Never Smoker Substance Use Type: Alcohol - Medications Home Medications: Home Medications Medication Instructions Recorded Confirmed Last Taken Type HCTZ 25 mg PO DAILY 02/18/17 02/18/17 Unknown History Warfarin Sodium 7.5 mg PO DAILY #30 02/19/17 Unknown Rx Azithromycin [Zithromax Z-BERENICE] 1 dose PO DAILY 5 Days tab 04/21/17 Unknown Rx Ferrous Sulfate [Feosol 325 MG tab] 325 mg PO QDAY #30 tablet 04/21/17 Unknown Rx traMADol [Ultram 50 MG tab] 50 mg PO Q6HR PRN #20 tablet 04/21/17 Unknown Rx Ibuprofen [Motrin 800 MG tab] 800 mg PO Q8HR PRN #30 tablet 08/01/17 Unknown Rx Sulfamethoxazole/Trimethoprim 1 each PO BID #14 tablet 08/01/17 Unknown Rx [Bactrim DS TAB] Naproxen Sodium [Anaprox Ds] 550 mg PO BID PRN #20 tablet 08/31/17 Unknown Rx Azithromycin [Zithromax Z-BERENICE] 250 mg PO DAILY #6 tablet 09/25/17 Unknown Rx ED Physical Exam - General Limitations: No Limitations General appearance: alert, in no apparent distress - Head Head exam: Present: atraumatic, normocephalic - Eye Eye exam: Present: normal appearance Pupils: Present: normal accommodation - ENT ENT exam: Present: normal orophraynx, mucous membranes moist, normal external ear exam - Expanded ENT Exam Expanded Ear exam: Present: normal external inspection TM/Canal exam: Erythema: Left TM, Bulging: Left TM Mouth exam: Present: normal external inspection, tongue normal. Absent: drooling, trismus, muffled voice, tongue elevation, laceration Teeth exam: Present: normal inspection Throat exam: Positive: normal inspection. Negative: tonsillar erythema, tonsillomegaly, tonsillar exudate, R peritonsillar mass, L peritonsillar mass - Neck Neck exam: Present: normal inspection, full ROM. Absent: tenderness, meningismus, lymphadenopathy - Respiratory Respiratory exam: Present: normal lung sounds bilaterally. Absent: respiratory distress - Cardiovascular Cardiovascular Exam: Present: regular rate, normal rhythm. Absent: systolic murmur, diastolic murmur, rubs, gallop - GI/Abdominal GI/Abdominal exam: Present: soft, normal bowel sounds - Extremities Exam Extremities exam: Present: normal inspection - Back Exam Back exam: Present: normal inspection - Neurological Exam Neurological exam: Present: alert, oriented X3 - Psychiatric Psychiatric exam: Present: normal affect, normal mood - Skin Skin exam: Present: warm, dry, intact, normal color. Absent: rash ED Course Vital Signs 09/25/17 07:47 Temperature 98.6 F Pulse Rate 87 Respiratory 20 Rate Blood Pressure 168/99 O2 Sat by Pulse 99 Oximetry - Reevaluation(s) Reevaluation #1: 09/25/17 09:26 Patient is speaking in full sentences with no signs of distress noted. Critical care attestation.: If time is entered above; I have spent that time in minutes in the direct care of this critically ill patient, excluding procedure time. ED Disposition Clinical Impression: Otitis media Qualifiers: Otitis media type: unspecified Laterality: right Qualified Code(s): H66.91 - Otitis media, unspecified, right ear Disposition: DC-01 TO HOME OR SELFCARE Is pt being admited?: No Does the pt Need Aspirin: No Condition: Stable Instructions: Otitis Media (ED), Azithromycin (By mouth) Additional Instructions: Follow-up with a primary care doctor in 3-5 days or if symptoms worsen and continue return to emergency room as soon as possible. Prescriptions: Azithromycin [Zithromax Z-BERENICE] 250 mg PO DAILY #6 tablet Referrals: PRIMARY CARE, [Primary Care Provider] - 3-5 Days MAYKEL CLARKE MD [Staff Physician] - 3-5 Days [facility] [Staff Physician] - 3-5 Days [facility] [Outside] - 3-5 Days [facility] [Outside] - 3-5 Days Forms: Work/School Release Form(ED)
== END 2017-09-25 09:46 | disposition home or self-care (01) ==
LOC: ED 07:28
DX: H66.91 Otitis media, unspecified, right ear (principal); I10 Essential (primary) hypertension; J45.909 Unspecified asthma, uncomplicated
CPT/HCPCS: 81001; 81025; 99283